=== PATIENT | male | born 1935 | race African-American/Black ===

== ENCOUNTER → 2016-12-04 | Outpatient (CLI) | payer MEDICARE, BC ==
[2016-12-04 09:55] LABS: ABSOLUTE BASOPHILS # (AUTO) 0.1 10^3/uL (0.0-0.2); ABSOLUTE EOSINOPHILS # (AUTO) 0.2 10^3/uL (0.0-0.6); ABSOLUTE LYMPHOCYTES (AUTO) 2.3 10^3/uL (0.5-4.7); ABSOLUTE MONOCYTES (AUTO) 0.7 10^3/uL (0.1-1.4); ABSOLUTE NEUT (AUTO) 5.3 10^3/uL (1.7-8.2); BASOPHILS % (AUTO) 0.6 % (0-2); EOSINOPHILS % (AUTO) 2.5 % (0-6); HEMATOCRIT 36.3 % (37.9-51.0); HGB HCT DIFFERENCE -0.3; LYMPHOCYTES % (AUTO) 27.3 % (13-45); MEAN CORPUSCULAR HEMOGLOBIN 27.6 pg (27.0-33.4); MEAN CORPUSCULAR VOLUME 84 fl (80-97); MONOCYTES % (AUTO) 8.3 % (3-13); RED BLOOD COUNT 4.33 10^6/uL (4.35-5.55); RED CELL DISTRIBUTION WIDTH 15.4 % (11.5-14.0); SEGMENTED NEUTROPHILS % (AUTO) 61.3 % (42-78); WHITE BLOOD COUNT 8.6 10^3/uL (4.0-10.5)
[2016-12-04 09:56] LABS: HEMATOCRIT 36.3 % (37.9-51.0); HGB HCT DIFFERENCE -0.3; MEAN CORPUSCULAR HEMOGLOBIN 27.6 pg (27.0-33.4); MEAN CORPUSCULAR VOLUME 84 fl (80-97); RED BLOOD COUNT 4.33 10^6/uL (4.35-5.55); RED CELL DISTRIBUTION WIDTH 15.4 % (11.5-14.0); WHITE BLOOD COUNT 8.6 10^3/uL (4.0-10.5)
[2016-12-04 09:57] LABS: APPEARANCE,URINE CLEAR; BILIRUBIN,URINE NEGATIVE (NEGATIVE); GLUCOSE, URINE NEGATIVE (NEGATIVE); KETONES,URINE NEGATIVE (NEGATIVE); LEUKOCYTE ESTERASE,URINE NEGATIVE (NEGATIVE); NITRITE,URINE NEGATIVE (NEGATIVE); PROTEIN,URINE NEGATIVE (NEGATIVE); URINE SPECIFIC GRAVITY 1.017; UROBILINOGEN,URINE NEGATIVE mg/dL (<2.0)
[2016-12-04 10:17] LABS: ALANINE AMINOTRANSFERASE 20 U/L (21-72); ALBUMIN 4.1 g/dL (3.5-5.0); ALKALINE PHOSPHATASE 110 U/L (38-126); ANION GAP 14 (5-19); ASPARTATE AMINO TRANSFERASE 16 U/L (17-59); BILIRUBIN,DIRECT 0.2 mg/dL (0.0-0.4); BILIRUBIN,TOTAL 0.7 mg/dL (0.2-1.3); BLOOD UREA NITROGEN 17 mg/dL (7-20); CALCIUM 9.1 mg/dL (8.4-10.2); CARBON DIOXIDE 24 mmol/L (22-30); CHLORIDE 107 mmol/L (98-107); CHOLESTEROL 167.84 mg/dL (0-200); CREATININE RESULT 0.99 mg/dL (0.52-1.25); Direct HDL 48 mg/dL (>40); GLUCOSE 149 mg/dL (75-110); POTASSIUM 4.4 mmol/L (3.6-5.0); TOTAL PROTEIN 6.9 g/dL (6.3-8.2); TRIGLYCERIDES 55 mg/dL (<150)
[2016-12-04 10:28] LABS: DIRECT LDL 86 mg/dL (<100)
[2016-12-04 11:08] LABS: ANION GAP 14 (5-19); BLOOD UREA NITROGEN 17 mg/dL (7-20); CALCIUM 9.1 mg/dL (8.4-10.2); CARBON DIOXIDE 24 mmol/L (22-30); CHLORIDE 107 mmol/L (98-107); CREATININE RESULT 0.99 mg/dL (0.52-1.25); GLUCOSE 149 mg/dL (75-110); POTASSIUM 4.4 mmol/L (3.6-5.0)
== END ==
LOC: OD 09:05
PROVIDERS: ATTEND Internal Medicine Nephrology
DX: I12.9 Hypertensive chronic kidney disease with stage 1 through stage 4 chronic kidney disease, or unspecified chronic kidney disease (principal); N18.2 Chronic kidney disease, stage 2 (mild); E11.9 Type 2 diabetes mellitus without complications; E87.5 Hyperkalemia; E53.9 Vitamin B deficiency, unspecified; R53.83 Other fatigue
CPT/HCPCS: 36415; 80048; 80053; 80061; 81001; 82607; 83036; 84443; 85025; 85027

== ENCOUNTER → 2017-06-02 | Outpatient (CLI) | payer MEDICARE, BC ==
[2017-06-02 09:43] LABS: APPEARANCE,URINE CLEAR; BILIRUBIN,URINE NEGATIVE (NEGATIVE); GLUCOSE, URINE NEGATIVE (NEGATIVE); KETONES,URINE NEGATIVE (NEGATIVE); LEUKOCYTE ESTERASE,URINE NEGATIVE (NEGATIVE); NITRITE,URINE NEGATIVE (NEGATIVE); PROTEIN,URINE NEGATIVE (NEGATIVE); URINE SPECIFIC GRAVITY 1.024; UROBILINOGEN,URINE NEGATIVE mg/dL (<2.0)
[2017-06-02 09:58] LABS: ABSOLUTE BASOPHILS # (AUTO) 0.1 10^3/uL (0.0-0.2); ABSOLUTE EOSINOPHILS # (AUTO) 0.3 10^3/uL (0.0-0.6); ABSOLUTE LYMPHOCYTES (AUTO) 2.4 10^3/uL (0.5-4.7); ABSOLUTE MONOCYTES (AUTO) 0.7 10^3/uL (0.1-1.4); BASOPHILS % (AUTO) 0.9 % (0-2); EOSINOPHILS % (AUTO) 3.4 % (0-6); HEMATOCRIT 35.6 % (37.9-51.0); HEMOGLOBIN 11.7 g/dL (13.5-17.0); HGB HCT DIFFERENCE -0.5; LYMPHOCYTES % (AUTO) 25.4 % (13-45); MEAN CORPUSCULAR HEMOGLOBIN 27.8 pg (27.0-33.4); MEAN CORPUSCULAR HGB CONC 32.7 g/dL (32.0-36.0); MEAN CORPUSCULAR VOLUME 85 fl (80-97); MONOCYTES % (AUTO) 7.4 % (3-13); RED BLOOD COUNT 4.19 10^6/uL (4.35-5.55); RED CELL DISTRIBUTION WIDTH 15.4 % (11.5-14.0); SEGMENTED NEUTROPHILS % (AUTO) 62.9 % (42-78); WHITE BLOOD COUNT 9.5 10^3/uL (4.0-10.5)
[2017-06-02 10:04] LABS: HEMATOCRIT 35.6 % (37.9-51.0); HEMOGLOBIN 11.7 g/dL (13.5-17.0); HGB HCT DIFFERENCE -0.5; MEAN CORPUSCULAR HEMOGLOBIN 27.8 pg (27.0-33.4); MEAN CORPUSCULAR HGB CONC 32.7 g/dL (32.0-36.0); MEAN CORPUSCULAR VOLUME 85 fl (80-97); RED BLOOD COUNT 4.19 10^6/uL (4.35-5.55); RED CELL DISTRIBUTION WIDTH 15.4 % (11.5-14.0); WHITE BLOOD COUNT 9.5 10^3/uL (4.0-10.5)
[2017-06-02 10:21] LABS: ALANINE AMINOTRANSFERASE 18 U/L (21-72); ALBUMIN 3.8 g/dL (3.5-5.0); ALKALINE PHOSPHATASE 112 U/L (38-126); ASPARTATE AMINO TRANSFERASE 13 U/L (17-59); BILIRUBIN,DIRECT 0.4 mg/dL (0.0-0.4); BILIRUBIN,TOTAL 0.7 mg/dL (0.2-1.3); BLOOD UREA NITROGEN 10 mg/dL (7-20); CALCIUM 9.4 mg/dL (8.4-10.2); CHLORIDE 105 mmol/L (98-107); CHOLESTEROL 147.74 mg/dL (0-200); Direct HDL 47 mg/dL (>40); GLUCOSE 159 mg/dL (75-110); TOTAL PROTEIN 6.9 g/dL (6.3-8.2); TRIGLYCERIDES 73 mg/dL (<150)
[2017-06-02 10:24] LABS: ANION GAP 12 (5-19); BLOOD UREA NITROGEN 10 mg/dL (7-20); CALCIUM 9.4 mg/dL (8.4-10.2); CARBON DIOXIDE 27 mmol/L (22-30); CHLORIDE 105 mmol/L (98-107); CREATININE RESULT 1.13 mg/dL (0.52-1.25); GLUCOSE 159 mg/dL (75-110); POTASSIUM 5.3 mmol/L (3.6-5.0); SODIUM 144.4 mmol/L (137-145)
[2017-06-02 10:32] LABS: DIRECT LDL 81 mg/dL (<100)
[2017-06-02 11:13] LABS: ANION GAP 12 (5-19); CARBON DIOXIDE 27 mmol/L (22-30); CREATININE RESULT 1.13 mg/dL (0.52-1.25); POTASSIUM 5.3 mmol/L (3.6-5.0); SODIUM 144.4 mmol/L (137-145)
[2017-06-03 11:40] LABS: MICROALBUMIN URINE 14.7 ug/mL (Not Estab.)
== END ==
LOC: OD 08:45
PROVIDERS: ATTEND Internal Medicine Nephrology
DX: E11.22 Type 2 diabetes mellitus with diabetic chronic kidney disease (principal); I12.9 Hypertensive chronic kidney disease with stage 1 through stage 4 chronic kidney disease, or unspecified chronic kidney disease; N18.2 Chronic kidney disease, stage 2 (mild); E53.9 Vitamin B deficiency, unspecified; R53.83 Other fatigue; E87.5 Hyperkalemia
CPT/HCPCS: 36415; 80048; 80053; 80061; 81001; 82043; 82570; 82607; 83036; 85025; 85027

== ENCOUNTER → 2017-12-01 | Outpatient (CLI) | payer MEDICARE, BC ==
[2017-12-01 09:11] LABS: HEMATOCRIT 40.8 % (37.9-51.0); HEMOGLOBIN 13.1 g/dL (13.5-17.0); MEAN CORPUSCULAR HEMOGLOBIN 26.5 pg (27.0-33.4); MEAN CORPUSCULAR VOLUME 83 fl (80-97); PLATELET COUNT 275 10^3/uL (150-450); RED BLOOD COUNT 4.92 10^6/uL (4.35-5.55); WHITE BLOOD COUNT 9.9 10^3/uL (4.0-10.5)
[2017-12-01 09:39] LABS: ANION GAP 14 (5-19); BLOOD UREA NITROGEN 12 mg/dL (7-20); CALCIUM 9.9 mg/dL (8.4-10.2); CARBON DIOXIDE 28 mmol/L (22-30); CHLORIDE 104 mmol/L (98-107); GLUCOSE 123 mg/dL (75-110); POTASSIUM 4.5 mmol/L (3.6-5.0); SODIUM 146.2 mmol/L (137-145)
== END ==
LOC: OD 07:54
PROVIDERS: ATTEND Internal Medicine Nephrology
DX: I12.9 Hypertensive chronic kidney disease with stage 1 through stage 4 chronic kidney disease, or unspecified chronic kidney disease (principal); N18.2 Chronic kidney disease, stage 2 (mild); E87.5 Hyperkalemia; E11.9 Type 2 diabetes mellitus without complications
CPT/HCPCS: 36415; 80048; 85027

== ENCOUNTER → 2017-12-31 | Outpatient (CLI) | payer MEDICARE, BC ==
[2017-12-31 09:33] LABS: ANION GAP 15 (5-19); BLOOD UREA NITROGEN 20 mg/dL (7-20); CALCIUM 9.8 mg/dL (8.4-10.2); CARBON DIOXIDE 29 mmol/L (22-30); CHLORIDE 105 mmol/L (98-107); GLUCOSE 135 mg/dL (75-110); POTASSIUM 4.6 mmol/L (3.6-5.0); SODIUM 148.8 mmol/L (137-145)
== END ==
LOC: OD 07:48
PROVIDERS: ATTEND Internal Medicine Nephrology
DX: I12.9 Hypertensive chronic kidney disease with stage 1 through stage 4 chronic kidney disease, or unspecified chronic kidney disease (principal); N18.2 Chronic kidney disease, stage 2 (mild); E11.9 Type 2 diabetes mellitus without complications; E87.5 Hyperkalemia; R60.9 Edema, unspecified
CPT/HCPCS: 36415; 80048; 83735

== ENCOUNTER → 2018-06-20 | Outpatient (CLI) | payer BC, OTHER ==
[2018-06-20 09:20] LABS: HEMATOCRIT 37.6 % (37.9-51.0); HEMOGLOBIN 12.4 g/dL (13.5-17.0); MEAN CORPUSCULAR HEMOGLOBIN 27.8 pg (27.0-33.4); MEAN CORPUSCULAR VOLUME 84 fl (80-97); PLATELET COUNT 277 10^3/uL (150-450); RED BLOOD COUNT 4.45 10^6/uL (4.35-5.55); RED CELL DISTRIBUTION WIDTH 15.4 % (11.5-14.0); WHITE BLOOD COUNT 9.9 10^3/uL (4.0-10.5)
[2018-06-20 09:41] LABS: ANION GAP 12 (5-19); BLOOD UREA NITROGEN 8 mg/dL (7-20); CALCIUM 9.4 mg/dL (8.4-10.2); CARBON DIOXIDE 28 mmol/L (22-30); CHLORIDE 105 mmol/L (98-107); GLUCOSE 94 mg/dL (75-110); POTASSIUM 4.8 mmol/L (3.6-5.0); SODIUM 144.7 mmol/L (137-145)
== END ==
LOC: OD 08:26
PROVIDERS: ATTEND Internal Medicine Nephrology
DX: I12.9 Hypertensive chronic kidney disease with stage 1 through stage 4 chronic kidney disease, or unspecified chronic kidney disease (principal); E11.22 Type 2 diabetes mellitus with diabetic chronic kidney disease; N18.2 Chronic kidney disease, stage 2 (mild); E87.5 Hyperkalemia
CPT/HCPCS: 36415; 80048; 85027

== ENCOUNTER → 2018-11-10 | Outpatient (CLI) | payer OTHER ==
[2018-11-10 08:20] LABS: ABSOLUTE BASOPHILS # (AUTO) 0.1 10^3/uL (0.0-0.2); ABSOLUTE EOSINOPHILS # (AUTO) 0.2 10^3/uL (0.0-0.6); ABSOLUTE MONOCYTES (AUTO) 0.6 10^3/uL (0.1-1.4); ABSOLUTE NEUT (AUTO) 5.5 10^3/uL (1.7-8.2); BASOPHILS % (AUTO) 0.9 % (0-2); EOSINOPHILS % (AUTO) 2.3 % (0-6); HEMATOCRIT 35.9 % (37.9-51.0); HEMOGLOBIN 11.8 g/dL (13.5-17.0); LYMPHOCYTES % (AUTO) 24.2 % (13-45); MEAN CORPUSCULAR HEMOGLOBIN 27.1 pg (27.0-33.4); MEAN CORPUSCULAR HGB CONC 32.9 g/dL (32.0-36.0); MEAN CORPUSCULAR VOLUME 83 fl (80-97); MONOCYTES % (AUTO) 6.9 % (3-13); PLATELET COUNT 256 10^3/uL (150-450); RED BLOOD COUNT 4.36 10^6/uL (4.35-5.55); RED CELL DISTRIBUTION WIDTH 14.7 % (11.5-14.0); SEGMENTED NEUTROPHILS % (AUTO) 65.7 % (42-78); TOTAL CELLS COUNTED % (AUTO) 100 %; WHITE BLOOD COUNT 8.4 10^3/uL (4.0-10.5)
[2018-11-10 08:42] LABS: ALANINE AMINOTRANSFERASE 9 U/L (21-72); ALKALINE PHOSPHATASE 126 U/L (38-126); ANION GAP 12 (5-19); ASPARTATE AMINO TRANSFERASE 15 U/L (17-59); BILIRUBIN,DIRECT 0.4 mg/dL (0.0-0.4); BILIRUBIN,TOTAL 0.8 mg/dL (0.2-1.3); BLOOD UREA NITROGEN 13 mg/dL (7-20); CALCIUM 9.5 mg/dL (8.4-10.2); CARBON DIOXIDE 28 mmol/L (22-30); CHLORIDE 104 mmol/L (98-107); CHOLESTEROL 163.01 mg/dL (0-200); GLUCOSE 103 mg/dL (75-110); POTASSIUM 4.1 mmol/L (3.6-5.0); SODIUM 143.7 mmol/L (137-145); TOTAL PROTEIN 7.4 g/dL (6.3-8.2); TRIGLYCERIDES 75 mg/dL (<150)
[2018-11-10 08:55] LABS: DIRECT LDL 92 mg/dL (<100)
== END ==
LOC: OD 07:43
PROVIDERS: ATTEND Internal Medicine
DX: E78.5 Hyperlipidemia, unspecified (principal); E11.22 Type 2 diabetes mellitus with diabetic chronic kidney disease; I12.9 Hypertensive chronic kidney disease with stage 1 through stage 4 chronic kidney disease, or unspecified chronic kidney disease; N18.3 Chronic kidney disease, stage 3 (moderate)
CPT/HCPCS: 36415; 80053; 80061; 83036; 84443; 85025

== ENCOUNTER → 2018-12-29 | Outpatient (CLI) | payer OTHER ==
[2018-12-29 09:37] LABS: HEMATOCRIT 36.2 % (37.9-51.0); HEMOGLOBIN 11.8 g/dL (13.5-17.0); MEAN CORPUSCULAR HEMOGLOBIN 26.8 pg (27.0-33.4); MEAN CORPUSCULAR HGB CONC 32.7 g/dL (32.0-36.0); MEAN CORPUSCULAR VOLUME 82 fl (80-97); PLATELET COUNT 497 10^3/uL (150-450); RED BLOOD COUNT 4.42 10^6/uL (4.35-5.55)
[2018-12-29 09:45] LABS: APPEARANCE,URINE SLIGHTLY-CLOUDY; BILIRUBIN,URINE NEGATIVE (NEGATIVE); COLOR,URINE YELLOW; GLUCOSE, URINE NEGATIVE (NEGATIVE); KETONES,URINE NEGATIVE (NEGATIVE); LEUKOCYTE ESTERASE,URINE TRACE (NEGATIVE); NITRITE,URINE NEGATIVE (NEGATIVE); PROTEIN,URINE 30 mg/dL (NEGATIVE); URINE SPECIFIC GRAVITY 1.025; UROBILINOGEN,URINE NEGATIVE mg/dL (<2.0)
[2018-12-29 09:59] LABS: ANION GAP 13 (5-19); BLOOD UREA NITROGEN 16 mg/dL (7-20); CALCIUM 9.7 mg/dL (8.4-10.2); CARBON DIOXIDE 26 mmol/L (22-30); CHLORIDE 104 mmol/L (98-107); SODIUM 143.3 mmol/L (137-145)
[2018-12-29 10:02] LABS: GLUCOSE 67 mg/dL (75-110)
== END ==
LOC: OD 08:49
PROVIDERS: ATTEND Internal Medicine Nephrology
DX: I12.9 Hypertensive chronic kidney disease with stage 1 through stage 4 chronic kidney disease, or unspecified chronic kidney disease (principal); N18.2 Chronic kidney disease, stage 2 (mild); E11.9 Type 2 diabetes mellitus without complications
CPT/HCPCS: 36415; 80048; 81001; 85027

== ENCOUNTER → 2018-12-30 | Outpatient (CLI) | payer OTHER ==
--- NOTE | 2018-12-30 08:54 | RADIOLOGY REPORT (SQ) ---
EXAM DESCRIPTION: CHEST 2 VIEWS COMPLETED DATE/TIME: 12/30/2018 8:42 am REASON FOR STUDY: COUGH (R05), BRONCHITIS (J40) COMPARISON: None. EXAM PARAMETERS: NUMBER OF VIEWS: two views TECHNIQUE: Digital Frontal and Lateral radiographic views of the chest acquired. RADIATION DOSE: NA LIMITATIONS: none FINDINGS: LUNGS AND PLEURA: No acute infiltrates or effusions. MEDIASTINUM AND HILAR STRUCTURES: No masses or contour abnormalities. HEART AND VASCULAR STRUCTURES: The heart is normal. The pulmonary vasculature is normal. BONES: Degenerative arthritis of the shoulders. Degenerative changes at the AC joints. HARDWARE: None in the chest. OTHER: No other significant finding. IMPRESSION: NO ACUTE DISEASE. TECHNICAL DOCUMENTATION: JOB ID: [id number] [id number] 2010 [employer]- All Rights Reserved Reading location - IP/workstation name: [email or web address]
== END ==
LOC: RAD 08:24
PROVIDERS: ATTEND Internal Medicine
DX: R05 Cough (principal); J40 Bronchitis, not specified as acute or chronic
CPT/HCPCS: 71046

== ENCOUNTER → 2019-01-02 | Outpatient (CLI) | payer OTHER ==
[2019-01-02 08:57] LABS: ABSOLUTE BASOPHILS # (AUTO) 0.1 10^3/uL (0.0-0.2); ABSOLUTE EOSINOPHILS # (AUTO) 0.3 10^3/uL (0.0-0.6); ABSOLUTE LYMPHOCYTES (AUTO) 2.3 10^3/uL (0.5-4.7); ABSOLUTE MONOCYTES (AUTO) 0.9 10^3/uL (0.1-1.4); ABSOLUTE NEUT (AUTO) 7.4 10^3/uL (1.7-8.2); BASOPHILS % (AUTO) 1.1 % (0-2); EOSINOPHILS % (AUTO) 2.7 % (0-6); HEMATOCRIT 34.5 % (37.9-51.0); HEMOGLOBIN 11.2 g/dL (13.5-17.0); LYMPHOCYTES % (AUTO) 20.4 % (13-45); MEAN CORPUSCULAR HEMOGLOBIN 26.6 pg (27.0-33.4); MEAN CORPUSCULAR HGB CONC 32.4 g/dL (32.0-36.0); MEAN CORPUSCULAR VOLUME 82 fl (80-97); MONOCYTES % (AUTO) 8.5 % (3-13); PLATELET COUNT 454 10^3/uL (150-450); SEGMENTED NEUTROPHILS % (AUTO) 67.3 % (42-78); TOTAL CELLS COUNTED % (AUTO) 100 %; WHITE BLOOD COUNT 11.1 10^3/uL (4.0-10.5)
[2019-01-02 09:17] LABS: ALANINE AMINOTRANSFERASE 16 U/L (21-72); ALBUMIN 3.7 g/dL (3.5-5.0); ALKALINE PHOSPHATASE 104 U/L (38-126); ANION GAP 14 (5-19); ASPARTATE AMINO TRANSFERASE 14 U/L (17-59); BILIRUBIN,DIRECT 0.3 mg/dL (0.0-0.4); BILIRUBIN,TOTAL 0.9 mg/dL (0.2-1.3); BLOOD UREA NITROGEN 15 mg/dL (7-20); CALCIUM 9.5 mg/dL (8.4-10.2); CARBON DIOXIDE 26 mmol/L (22-30); CHLORIDE 103 mmol/L (98-107); CHOLESTEROL 139.02 mg/dL (0-200); GLUCOSE 126 mg/dL (75-110); POTASSIUM 4.6 mmol/L (3.6-5.0); SODIUM 142.8 mmol/L (137-145); TOTAL PROTEIN 6.6 g/dL (6.3-8.2); TRIGLYCERIDES 79 mg/dL (<150)
[2019-01-02 09:28] LABS: DIRECT LDL 85 mg/dL (<100)
== END ==
LOC: OD 08:35
PROVIDERS: ATTEND Internal Medicine
DX: E11.22 Type 2 diabetes mellitus with diabetic chronic kidney disease (principal); I12.9 Hypertensive chronic kidney disease with stage 1 through stage 4 chronic kidney disease, or unspecified chronic kidney disease; N18.9 Chronic kidney disease, unspecified; E78.5 Hyperlipidemia, unspecified
CPT/HCPCS: 36415; 80053; 80061; 83036; 84443; 85025

== ENCOUNTER → 2019-07-10 | Outpatient (CLI) | payer OTHER ==
[2019-07-10 09:52] LABS: HEMATOCRIT 35.8 % (37.9-51.0); HEMOGLOBIN 11.9 g/dL (13.5-17.0); MEAN CORPUSCULAR HEMOGLOBIN 27.9 pg (27.0-33.4); MEAN CORPUSCULAR HGB CONC 33.1 g/dL (32.0-36.0); MEAN CORPUSCULAR VOLUME 84 fl (80-97); PLATELET COUNT 224 10^3/uL (150-450); RED BLOOD COUNT 4.25 10^6/uL (4.35-5.55); RED CELL DISTRIBUTION WIDTH 15.6 % (11.5-14.0); WHITE BLOOD COUNT 8.2 10^3/uL (4.0-10.5)
[2019-07-10 09:55] LABS: APPEARANCE,URINE CLEAR; BILIRUBIN,URINE NEGATIVE (NEGATIVE); COLOR,URINE YELLOW; GLUCOSE, URINE NEGATIVE (NEGATIVE); KETONES,URINE NEGATIVE (NEGATIVE); LEUKOCYTE ESTERASE,URINE NEGATIVE (NEGATIVE); NITRITE,URINE NEGATIVE (NEGATIVE); PROTEIN,URINE NEGATIVE (NEGATIVE); UROBILINOGEN,URINE NEGATIVE mg/dL (<2.0)
[2019-07-10 10:28] LABS: ANION GAP 8 (5-19); BLOOD UREA NITROGEN 19 mg/dL (7-20); CALCIUM 9.6 mg/dL (8.4-10.2); CARBON DIOXIDE 29 mmol/L (22-30); CHLORIDE 104 mmol/L (98-107); GLUCOSE 152 mg/dL (75-110); POTASSIUM 4.9 mmol/L (3.6-5.0)
== END ==
LOC: OD 08:57
PROVIDERS: ATTEND Internal Medicine Nephrology
DX: N18.2 Chronic kidney disease, stage 2 (mild) (principal); I12.9 Hypertensive chronic kidney disease with stage 1 through stage 4 chronic kidney disease, or unspecified chronic kidney disease; E87.5 Hyperkalemia; E16.2 Hypoglycemia, unspecified; E11.22 Type 2 diabetes mellitus with diabetic chronic kidney disease
CPT/HCPCS: 36415; 80048; 81001; 85027

== ENCOUNTER → 2020-03-29 | Outpatient (CLI) | payer OTHER ==
[2020-03-29 10:00] LABS: APPEARANCE,URINE CLEAR; BILIRUBIN,URINE NEGATIVE (NEGATIVE); COLOR,URINE YELLOW; GLUCOSE, URINE NEGATIVE (NEGATIVE); KETONES,URINE NEGATIVE (NEGATIVE); LEUKOCYTE ESTERASE,URINE NEGATIVE (NEGATIVE); NITRITE,URINE NEGATIVE (NEGATIVE); PROTEIN,URINE 30 mg/dL (NEGATIVE); URINE SPECIFIC GRAVITY 1.019; UROBILINOGEN,URINE NEGATIVE mg/dL (<2.0)
[2020-03-29 10:14] LABS: ABSOLUTE BASOPHILS # (AUTO) 0.1 10^3/uL (0.0-0.2); ABSOLUTE EOSINOPHILS # (AUTO) 0.2 10^3/uL (0.0-0.6); ABSOLUTE LYMPHOCYTES (AUTO) 2.1 10^3/uL (0.5-4.7); ABSOLUTE MONOCYTES (AUTO) 0.6 10^3/uL (0.1-1.4); ABSOLUTE NEUT (AUTO) 6.4 10^3/uL (1.7-8.2); BASOPHILS % (AUTO) 0.5 % (0-2); EOSINOPHILS % (AUTO) 1.9 % (0-6); HEMATOCRIT 36.5 % (37.9-51.0); LYMPHOCYTES % (AUTO) 22.7 % (13-45); MEAN CORPUSCULAR HEMOGLOBIN 27.6 pg (27.0-33.4); MEAN CORPUSCULAR HGB CONC 32.9 g/dL (32.0-36.0); MEAN CORPUSCULAR VOLUME 84 fl (80-97); MONOCYTES % (AUTO) 6.2 % (3-13); PLATELET COUNT 277 10^3/uL (150-450); RED BLOOD COUNT 4.35 10^6/uL (4.35-5.55); RED CELL DISTRIBUTION WIDTH 14.4 % (11.5-14.0); SEGMENTED NEUTROPHILS % (AUTO) 68.7 % (42-78); TOTAL CELLS COUNTED % (AUTO) 100 %; WHITE BLOOD COUNT 9.3 10^3/uL (4.0-10.5)
[2020-03-29 10:48] LABS: ALBUMIN 4.3 g/dL (3.5-5.0); ALKALINE PHOSPHATASE 128 U/L (38-126); ANION GAP 7 (5-19); ASPARTATE AMINO TRANSFERASE 20 U/L (17-59); BILIRUBIN,TOTAL 0.5 mg/dL (0.2-1.3); BLOOD UREA NITROGEN 26 mg/dL (7-20); CALCIUM 9.4 mg/dL (8.4-10.2); CARBON DIOXIDE 29 mmol/L (22-30); CHLORIDE 104 mmol/L (98-107); CHOLESTEROL 182.27 mg/dL (0-200); GLUCOSE 126 mg/dL (75-110); TOTAL PROTEIN 7.7 g/dL (6.3-8.2); TRIGLYCERIDES 67 mg/dL (<150)
[2020-03-29 10:59] LABS: DIRECT LDL 101 mg/dL (<100)
== END ==
LOC: OD 09:21
PROVIDERS: ATTEND Internal Medicine
DX: E11.9 Type 2 diabetes mellitus without complications (principal); I10 Essential (primary) hypertension; E78.5 Hyperlipidemia, unspecified; R30.0 Dysuria; R53.83 Other fatigue
CPT/HCPCS: 36415; 80053; 80061; 81001; 83036; 84443; 85025

== ENCOUNTER → 2020-05-09 | Outpatient (CLI) | payer OTHER ==
--- NOTE | 2020-05-09 09:40 | ST Modified Barium Swallow ---
Recommendation - Recommendations Recommendations: Recommend patient keep appointment on 05/21/20 for outpatient speech therapy to address mild pharyngeal and oral phase dysphagia. No diet change recommendations at this time, did educate family on alternating bites and sips. Medical Diagnoses - Medical Diagnoses Medical Diagnosis Description & ICD-10 Code(s): aspiration, dysphagia Other Medical Diagnoses/Co-Morbidities: per physician note: chronic kidney disease stage 3, diabetes, high cholesterol, high blood pressure, nephropathy - ICD-10 Tx Diagnosis Coding (1) Dysphagia ICD-10 Code(s): R13.10 - DYSPHAGIA, UNSPECIFIED ST Modified Barium Swallow - General Date: 05/09/20 Referring Physician: Dr. Cintron Risks/Precautions: Falls, Aspiration Date of Onset: 03/23/20 - approximte onset date Reason for Referral: "episodes of choking with his food" - History -: Medical - Patient arrived with niece, who assisted with history. Reports that the patient has been having episodes of choking and coughing with meals for approximately 1 month. States that he will have prolonged periods of no breathing or coughing, eventually resolving. No significant diet changes, a lthough tending towards softer foods. Niece also reports possible mini-strokes. Medications: per physician note: flonase, aspirin, vitamin B-12, omeprazole, metformin, glipizide, atorvastatin, mucinex Allergies: none reported - Functional Status Prior Functional Status: INDEPENDENT: feeding Current Functional Limitations: feeding - frequent choking episodes with meals - Subjective Patient/caregiver goal(s): safe swallow, r/o aspiration Cognitive-Linguistic Function: Mildly Impaired Speech Intelligibility: Mildly dysarthric, Reduced intelligibility Current Nutritional Means: PO Current PO diet: Soft - with thin liquids Current symptoms: Coughing Pain: Patient reports, 0/5 - Objective Assessment: Upright, Left Lateral - Food Trials Used Food trials used: Thin liquids, Pureed, Regular The patient: Was Able to Self Feed - Assessment Oral prep: Normal Labial closure: Adequate Leakage: None Mastication: Adequate Lingual Movement: Normal Oral stage: Piecemeal Deglutition - Pharyngeal Stage Initiation of Pharyngeal Stage Reflex: Delayed - mild Decreased laryngeal elevation: Yes - inconsistently Reduced Velopharyngeal Closure: no Reduced pressure generation: Yes Pre-swallow pooling in valleculae: Moderate Pre-Swallow pooling in pyriforms: None Reduced Thyro-Hyoid approximation: Yes - mild Reduced epiglottic excursion: No Reduced pharyngeal peristalsis/contraction: Yes Multiple Swallows with: Cleared w/ Dry Swallow Post-swallow residulas vallecular: Moderate Post-Swallow residuals in pyriforms: Mild Reduced Cricopharyngeal opening: No - Fall Risk Assessment Medications/Conditions that increase fall risks include: Antidepressants, roberto tives, anti-arrhythmic, diuretic, benzodiazipenes, neuroleptics. BP regulation problems, cardiac problems, balance or gait deficits, neurological problems. Is patient considered at risk for falls: yes Fall Risk Actions Taken: No action needed - Behavioral Observations During evaluation process patient: was cooperative - Treatment / Educational Needs: Treatment/Education Needs: Treatment consisted of patient education on the role of the Speech Pathologist. Patient's plan of care and golas were communicated as well as scheduling and attendance policies. Recommendations for initial home program were shared. Patient demonstrated understanding and verbalized agreem ent. - Impression/Summary Laryngeal Penetration: Flash - with sequential sips of thin liquid only Tracheal Aspiration: no Patient presents with: Pharyngeal stage dysph. - mild Risk of Aspiration: Mild Risk of nutritional compromise: WNL Evaluation and Findings: Patient presents with mild oral and pharyngeal phase dysphagia, characterized by piecemeal swallowing, as well as pharyngeal residue and intermittently reduced airway closure on the swallow. Patient demonstrated some reduced pharyngeal constriction and laryngeal elevation, resulting in residuals. However, this was not consistent with all swallows. It was noted that residue increased as texture of bolus increaseded, residue was largely able to be removed with second swallow, cued by therapist. - Recommendations Solid diet recommendations: Regular Liquid Diet Modification: Thin Strict aspiration precautions: Yes Pt/Family education and followup with MD: Yes Dysphagia therapy with [employer]: f/u with current thera. - Patient currently has an outpatient dysphagia evaluation scheduled on 05/21/20. Recommend patient keep this appointment to establish plan of care for swallowing therapy. Short course of therapy anticipated. Recommended techniques: Fully Upright During Meal, Small Bites and Sips, Alternate Bites/Sips Supervision: Distant Information, Precautions and Recommendations: Patient (Written), Patient (Verbal), Family Member (Written), Family Member (Verbal) - Time Total Time: 30 - Plan of Care Strategies to optimize patient understanding include:: ongoing assessment of educational needs, implementation of educational strategies, and re-education. - - -: Thank you for the opportunity to work with this patient and his/her family. Should you have any questions about this patient's plan or progress, I can be reached at [phone].
--- NOTE | 2020-05-09 10:53 | RADIOLOGY REPORT (SQ) ---
EXAM DESCRIPTION: COOKIE SWALLOW IMAGES COMPLETED DATE/TIME: 05/09/2020 9:22 am REASON FOR STUDY: ASPIRATION, DYSPHAGIA T17.908A UNSP FB IN RESP TRACT, PART UNSP CAUSING OTH INJUR Y CVA COMPARISON: None. TECHNIQUE: Videofluoroscopic swallowing examination was performed in conjunction with speech patholo gy. Videofluoroscopic imaging was obtained and reviewed and these are the findings: RADIATION DOSE: 2.9 minutes of fluoroscopy was used. 1. Images saved to PACS. LIMITATIONS: None FINDINGS: The patient was brought into the fluoro room and placed upright on a modified barium swall ow chair. The patient was then given multiple consistencies mixed with barium to swallow under live fluoroscopic video guidance. According to the Speech Pathologist there was trace laryngeal penetrati on without aspiration. IMPRESSION: TRACE LARYNGEAL PENETRATION WITHOUT ASPIRATION ON THIN LIQUIDS. PLEASE SEE SPEECH PATHOL OGIST REPORT FOR OTHER FINDINGS AND RECOMMENDATIONS. COMMENT: Quality ID [id number]: Final reports for procedures using fluoroscopy that document radiation exp osure indices, or exposure time and number of fluorographic images (if radiation exposure indices are not available) TECHNICAL DOCUMENTATION: JOB ID: [id number] 2010 [employer]- All Rights Reserved Reading location - IP/workstation name: [email or web address]
== END ==
LOC: RAD 08:36
PROVIDERS: ATTEND Internal Medicine
DX: T17.908A Unspecified foreign body in respiratory tract, part unspecified causing other injury, initial encounter (principal); X58.XXXA Exposure to other specified factors, initial encounter; R13.10 Dysphagia, unspecified; I12.9 Hypertensive chronic kidney disease with stage 1 through stage 4 chronic kidney disease, or unspecified chronic kidney disease; N18.3 Chronic kidney disease, stage 3 (moderate); E11.22 Type 2 diabetes mellitus with diabetic chronic kidney disease; E78.00 Pure hypercholesterolemia, unspecified
CPT/HCPCS: 74230

== ENCOUNTER → 2020-08-08 | Outpatient (CLI) | payer OTHER ==
[2020-08-08 08:54] LABS: APPEARANCE,URINE CLEAR; BILIRUBIN,URINE NEGATIVE (NEGATIVE); COLOR,URINE YELLOW; GLUCOSE, URINE NEGATIVE (NEGATIVE); KETONES,URINE NEGATIVE (NEGATIVE); LEUKOCYTE ESTERASE,URINE NEGATIVE (NEGATIVE); NITRITE,URINE NEGATIVE (NEGATIVE); PROTEIN,URINE NEGATIVE (NEGATIVE); URINE SPECIFIC GRAVITY 1.019; UROBILINOGEN,URINE NEGATIVE mg/dL (<2.0)
[2020-08-08 09:07] LABS: ABSOLUTE BASOPHILS # (AUTO) 0.1 10^3/uL (0.0-0.2); ABSOLUTE EOSINOPHILS # (AUTO) 0.2 10^3/uL (0.0-0.6); ABSOLUTE LYMPHOCYTES (AUTO) 2.7 10^3/uL (0.5-4.7); ABSOLUTE MONOCYTES (AUTO) 0.7 10^3/uL (0.1-1.4); ABSOLUTE NEUT (AUTO) 4.1 10^3/uL (1.7-8.2); BASOPHILS % (AUTO) 0.7 % (0-2); EOSINOPHILS % (AUTO) 3.1 % (0-6); HEMATOCRIT 33.9 % (37.9-51.0); HEMOGLOBIN 11.1 g/dL (13.5-17.0); LYMPHOCYTES % (AUTO) 34.6 % (13-45); MEAN CORPUSCULAR HEMOGLOBIN 27.5 pg (27.0-33.4); MEAN CORPUSCULAR HGB CONC 32.9 g/dL (32.0-36.0); MEAN CORPUSCULAR VOLUME 84 fl (80-97); MONOCYTES % (AUTO) 8.7 % (3-13); PLATELET COUNT 255 10^3/uL (150-450); RED BLOOD COUNT 4.05 10^6/uL (4.35-5.55); RED CELL DISTRIBUTION WIDTH 15.2 % (11.5-14.0); SEGMENTED NEUTROPHILS % (AUTO) 52.9 % (42-78); TOTAL CELLS COUNTED % (AUTO) 100 %; WHITE BLOOD COUNT 7.8 10^3/uL (4.0-10.5)
[2020-08-08 09:09] LABS: ALBUMIN 3.9 g/dL (3.5-5.0); ALKALINE PHOSPHATASE 115 U/L (38-126); ANION GAP 8 (5-19); ASPARTATE AMINO TRANSFERASE 19 U/L (17-59); BILIRUBIN,DIRECT 0.1 mg/dL (0.0-0.4); BILIRUBIN,TOTAL 0.8 mg/dL (0.2-1.3); BLOOD UREA NITROGEN 19 mg/dL (7-20); CALCIUM 9.9 mg/dL (8.4-10.2); CARBON DIOXIDE 30 mmol/L (22-30); CHLORIDE 103 mmol/L (98-107); GLUCOSE 101 mg/dL (75-110); POTASSIUM 4.7 mmol/L (3.6-5.0); TOTAL PROTEIN 7.2 g/dL (6.3-8.2)
== END ==
LOC: OD 07:45
PROVIDERS: ATTEND Internal Medicine
DX: E11.21 Type 2 diabetes mellitus with diabetic nephropathy (principal); I10 Essential (primary) hypertension; R41.0 Disorientation, unspecified
CPT/HCPCS: 36415; 80053; 81001; 83036; 84443; 85025; 87086

== ENCOUNTER → 2020-08-19 | Outpatient (CLI) | payer OTHER ==
[2020-08-19 14:50] VITALS: BP 134/62
--- NOTE | 2020-08-19 14:50 | ER RDC ASSESSMENT REPORT ---
Intake - In the Last 14 days Have you traveled outside [place]?: No Have you been in close contact with someone CONFIRMED: No Worked in Healthcare?: No - Symptoms Subjective Fever([place] feverish): No Chills: No Muscule Aches: No Runny Nose: No Sore Throat: No Cough (New or worsening chronic cough): No Shortness of breath: No Nausea or Vomiting: No Headache: No Abdominal Pain: No Diarrhea(3 or more loose stools in last 24 hours): No --How many day(s)?: Patient had an episode of diarrhea over a week ago - Do you have any of the following Chronic lung disease: Asthma or emphysema or COPD: No Cystic Fibrosis: No Diabetes: Yes High Blood Pressure: Yes Cardiovascular Disease: Yes Chronic Kidney Disease: No Chronic Liver Disease: Yes Chronic blood disorder like Sickle Cell Disease: No Weak immune system due to disease or medication: No Neurologic condition that limits movement: No Developmental delay - Moderate to Severe: No Recent (within past 2 weeks) or current : No Morbid Obesity (>100 pounds over ideal weight): No Obesity Comment: Height 5 feet 9 inches weight 140 pounds - Objective Temperature: 98.0 F Pulse Rate: 83 Respiratory Rate: 18 Blood Pressure: 134/62 O2 Sat by Pulse Oximetry: 96 Objective: Given above, testing performed: If Testing Performed: Test Specimen Type Sent to General - General Information source: Patient Notes: Patient here at [facility] for Covid testing patient and family report patient has not had any known positive exposure to Covid that they are aware of patient had one episode of diarrhea over a week ago last Wednesday and none since patient has an appointment scheduled with his PCP this afternoon with Dr. Cintron. Vinh connolly's family was concerned and scheduled the appointment today to have Covid testing completed. - Related Data Allergies/Adverse Reactions: No Known Allergies Allergy (Verified 03/19/19 10:11) Past Medical History - General Information source: Patient - Social History Smoking Status: Never Smoker Family History: CAD, CVA, Malignancy Endocrine Medical History: Reports: Hx Diabetes Mellitus Type 2 Renal/ Medical History: Denies: Hx Peritoneal Dialysis Physical Exam - General General appearance: Appears well, Alert In distress: None Notes: PHYSICAL EXAMINATION: GENERAL: Well-appearing and in no acute distress. HEAD: Atraumatic, normocephalic. EYES: sclera anicteric, conjunctiva are normal. ENT: nares patent. Moist mucous membranes. NECK: Normal range of motion, supple without lymphadenopathy LUNGS: CTAB and equal. No wheezes rales or rhonchi. Respirations even and unlabored lung sounds clear HEART: Regular rate and rhythm without murmurs ABDOMEN: Soft, nontender, normal bowel sounds, no guarding. BACK: No midline tenderness, no step-off or deformity. No CVA tenderness NEUROLOGICAL: Cranial nerves grossly intact. Normal speech. Normal gait. PSYCH: Normal mood, normal affect. SKIN: Warm, Dry, normal turgor, no rashes or lesions noted Diagnostic Results Laboratory Results: Pending Covid testing results. Patient provided instructions regarding Covid to include: As a person under investigation for Covid 19, the [facility] Health and Human Services, division of public health advises you to adhere to the following guidance until your test results are reported to you. If your test result is positive, you will receive additional information from your provider and your local health department at that time. Remain at home until you are cleared by the health provider or public health authorities. Keep a log of visitors to your home, notify any visitors to your home of your isolation status. If you plan to move to a new address or leave the county, notify the local health department in your County. Call your doctor or seek care if you have an urgent medical need. Before seeking medical care, call ahead to get instructions from the provider before arriving at the medical office clinic or hospital. Notify them that you are being tested for the virus that causes Covid 19 so that arrangements can be made, as necessary, to prevent transmission to others in the healthcare setting. Next, notify the local health department in your county. If a medical emergency arises and you need to call 911, inform the first responders that you are being tested for the virus that causes Covid 19. Next, notify the local health department in your county. Patient Education/Counseling Counseling/Education: Patient presents with upper respiratory symptoms worrisome for possible Covid 19. Patient does not have emergency worring symptoms such as difficulty breathing, shortness of breath, chest pain, pressure, confusion or cyanosis. Patient appears suitable for discharge. Patient and family instructed to follow-up with patient's PCP today Dr. Cintron. To ED for any persistent or worsening symptoms patient's vital signs are stable and patient is nontoxic in appearance. Good return precautions have been discussed with patient, patient verbalized understanding and is agreeable with discharge plan of care at this time. RDC Discharge - Discharge Clinical Impression: Encounter for screening laboratory testing for COVID-19 virus Condition: Stable Disposition: Home; Selfcare
== END ==
LOC: RDC 13:59
PROVIDERS: ATTEND Nurse Practitioner Family
DX: Z20.828 Contact with and (suspected) exposure to other viral communicable diseases (principal); I10 Essential (primary) hypertension; E11.9 Type 2 diabetes mellitus without complications; K76.1 Chronic passive congestion of liver
CPT/HCPCS: 99201; U0003; G0463; C9803; 87635; 99211